=== PATIENT | male | born 1995 | race Caucasian/White ===

== ENCOUNTER 2020-01-08 16:53 | Emergency (ER) | payer OTHER, SELFPAY ==
[~2020-01-08] VITALS: Ht 185.4 cm; Wt 63.5 kg
[2020-01-08 16:54] VITALS: Ht 185.4 cm; Wt 63.5 kg
[2020-01-08 17:53] LABS: BASOPHIL % 0.2 % (0-2); PLATELET COUNT 269 x10^3mcL (130-400); RED CELL DISTRIBUTION WIDTH 13.5 % (11.5-14.5)
[2020-01-08 18:10] LABS: ALKALINE PHOSPHATASE 57 U/L (46-116); ALT/SGPT 30 U/L (16-63); AST/SGOT 25 U/L (15-37); BILIRUBIN TOTAL 1.83 mg/dL (0.20-1.00); CALCIUM 9.9 mg/dL (8.5-10.1); CARBON DIOXIDE 24.5 mmol/L (21-32); CREATININE SERUM 0.9 mg/dL (0.7-1.3); GFR1 > 60 mL/min; GLUCOSE SERUM 183 mg/dL (74-106); LIPASE 54 IU/L (73-393); TOTAL PROTEIN, SERUM 8.1 g/dL (6.4-8.2)
[2020-01-08 18:17] LABS: ALBUMIN 5.1 g/dL (3.4-5.0)
[2020-01-08 18:23] LABS: CHLORIDE SERUM 99 mmol/L (98-107); POTASSIUM SERUM 3.4 mmol/L (3.5-5.1); SODIUM SERUM 139 mmol/L (136-145)
[2020-01-08 19:00] VITALS: BP 120/82
== END 2020-01-08 22:02 | disposition home or self-care (01) ==
LOC: ED 16:53
PROVIDERS: Emergency Medicine
DX: R11.10 Vomiting, unspecified (principal); R10.13 Epigastric pain
CPT/HCPCS: J1630; J2405; J7030